=== PATIENT | male | born 1965 | race Caucasian/White ===

== ENCOUNTER 2016-09-24 01:15 | Emergency (ER) | payer OTHER, BC ==
[~2016-09-24] VITALS: Ht 175.3 cm; Wt 93.1 kg
[2016-09-24 01:19] VITALS: BP 171/106
[2016-09-24] MEDS ORDERED: NAPROSYN500 MG PO (02:04)
[2016-09-24] MEDS ORDERED: NORCO 5/3251 TABLET PO (02:04)
== END 2016-09-24 02:28 | disposition home or self-care (01) ==
LOC: EME 01:15 → EXP 01:15
DX: S83.92XA Sprain of unspecified site of left knee, initial encounter (principal); X50.9XXA Other and unspecified overexertion or strenuous movements or postures, initial encounter; Y93.01 Activity, walking, marching and hiking; Y99.0 Civilian activity done for income or pay
CPT/HCPCS: 73564; 99281; 99284